=== PATIENT | female | born 1970 | race Caucasian/White ===

== ENCOUNTER 2016-09-11 12:47 | Emergency (ER) | payer MEDICAID ==
--- NOTE | 2016-09-11 13:35 | ED Physician Chart ---
Chief Complaint/HPI - Patient Information Date Seen:: 09/11/16 Time Seen:: 13:20 Chief Complaint:: pain left second and third toes History of Present Illness:: 4 days ago this 45-year-old female during the night accidentally kicked the leg of her bed. Allergies:: Allergies Allergy/AdvReac Type Severity Reaction Status Date / Time No Known Allergies Allergy Verified 09/11/16 12:57 Vitals:: Vital Signs - 8 hr 09/11/16 09/11/16 12:47 13:26 Temp 97.0 F 97 F HR 86 80 RR 16 16 BP 120/58 127/60 O2 Sat % 99 100 Historian:: Patient Review:: Nurse's Note Reviewed Review of Systems - Review of Systems General/Constitutional: No fever, No chills Skin: No skin lesions Eyes: No loss of vision ENT: No earache Neck: No neck pain, No swelling Pulmonary: No SOB, No cough GI: No nausea, No vomiting G/U: No dysuria, No hematuria Musculoskeletal: Bone or joint pain Hematopoietic: Bruising Allergic/Immuno: No urticaria Neurological: No syncope, No focal symptoms Past Medical History - Past Medical History Past Medical History: DM Family History: Diabetes Melitus Social History: Non Smoker, No Alcohol Surgical History: Hysterectomy Psychiatricy History: None Medication: Reviewed Family Medical History - Family Member Mother History Unknown: Yes Father Living Status: Hx Family Cancer: Yes Hx Family Diabetes: Yes Physical Exam - Physical Examination General/Constitutional: Well-developed, well-nourished, Alert, No distress Head: Atraumatic Eyes: Lids, conjuctiva normal, PERRL Skin: No rash, No ecchymosis ENMT: External ears, nose nl, Lips, teeth, gums nl Neck: No nuchal rigidity Respiratory: Nl effort/Exclusion, Clear to Auscultation Cardio Vascular: No murmur, gallop, rubs GI: No tenderness/rebounding/guarding, No organomegaly, No hernia : No CVA tenderness Other Extremities comments:: Contusion of the the dorsum of the left second and third toes; no deformity noted. Neuro/Psych: Alert/oriented, No focal deficits Misc: No paraspinal tenderness Labs/Radiology/EKG Results - Radiology Results Results: X-ray left foot negative for fracture ED Septic Shock - . Is Septic Shock (SBP<90, OR Lactate>4 mmol\L) present?: No - <6hrs of presentation: Vital Signs: Vital Signs - 8 hr 09/11/16 09/11/16 12:47 13:26 Temp 97.0 F 97 F HR 86 80 RR 16 16 BP 120/58 127/60 O2 Sat % 99 100 Reassessment (Disposition) - Reassessment Reassessment Condition:: Unchanged - Diagnosis Diagnosis:: Contusion toes of left foot - Aftercare/Follow up Instructions Aftercare/Follow-Up Instructions:: Refer to Discharge Instructions - Patient Disposition Discharge/Transfer:: Home Condition at Disposition:: Stable, Unchanged
--- NOTE | 2016-09-11 13:57 | Diagnostic Imaging Report ---
Left foot (2 views) HISTORY: Pain No acute bony abnormalities seen at this time. No definite fractures. Joint spaces appear normal. IMPRESSION: No acute bony abnormalities. In the presence of recent trauma and persistent symptoms, a repeat radiograph in 5-7 days may be helpful for detection of a subtle or occult fracture.
== END 2016-09-11 14:30 | disposition home or self-care (01) ==
LOC: ER 12:47
DX: S90.122A Contusion of left lesser toe(s) without damage to nail, initial encounter (principal); E11.9 Type 2 diabetes mellitus without complications; Z90.710 Acquired absence of both cervix and uterus; W22.8XXA Striking against or struck by other objects, initial encounter; Y93.89 Activity, other specified; Y92.89 Other specified places as the place of occurrence of the external cause; Y99.8 Other external cause status
CPT/HCPCS: 73620-TC-LT; Z7502